=== PATIENT | female | born 1955 | race African-American/Black ===

== ENCOUNTER 2017-12-06 10:18 | Inpatient (IN) | payer OTHER ==
[~2017-12-06] VITALS: Ht 170.2 cm; Wt 89.8 kg
[2017-12-06 11:18] LABS: Urine Bacteria FEW /hpf (None Seen); Urine Blood Negative /uL (Negative); Urine Specific Gravity 1.042 (1.001-1.035); Urine WBC 2 /hpf (0 - 5)
[2017-12-06 11:19] LABS: Hemoglobin 17.9 g/dL (12.2-16.2)
[2017-12-06 11:21] LABS: Hematocrit 52.7 % (36.0-46.0); Mean Corpuscular Hemoglobin 32.8 pg (28.0-32.0); Mean Corpuscular Volume 96.3 fL (80.0-100.0); Platelet Count (auto) 204 10^3/uL (140-450); Red Blood Cells 5.47 10^6/uL (4.0-5.20); Red Cell Distribution Width 15.6 % (11.8-14.3)
[2017-12-06 11:35] LABS: Basophils % (manual) 0 (0.0-2.0); Blast Cells 0; Eosinophils % (manual) 0 (0-7); Metamyelocytes % 0; Monocytes % (manual) 0 (0-12); Myelocytes % 0; Promyelocytes % 0; Reactive Lymphocytes 0; White Blood Cell 34.2 10^3/uL (4.4-10.8)
[2017-12-06 11:38] LABS: Albumin 3.9 g/dL (3.4-5.0); BUN/Creatinine Ratio 11.8; Bilirubin, Total 1.3 mg/dL (0.2-1.0); Calcium 8.7 mg/dL (8.5-10.1); Potassium 3.1 mmol/L (3.5-5.1); Total Protein 8.2 g/dL (6.4-8.2)
[2017-12-06] MEDS ORDERED: MORPHINE SULFATE 8mg/ml INJ SDV IV ONE (12:00)
[2017-12-06] MEDS ORDERED: SODIUM CHLORIDE 0.9% 1,000 ML IV ONE (12:00)
[2017-12-06] MEDS ORDERED: ONDANSETRON HCL 4 MG/2 ML VIAL IV ONE (12:00)
[2017-12-06] MEDS ORDERED: cefTRIAXone 1GM/10ml IVPUSH 10 ML IV ONE (13:15)
[2017-12-06 13:22] LABS: Amylase 321 U/L (25-115)
[2017-12-06 13:32] LABS: Lipase 5942 U/L (73-393)
[2017-12-06 14:11] LABS: Band Neutrophils % (manual) 17; Lymphocytes % (manual) 3 (10.0-50.0)
[2017-12-06] MEDS ORDERED: LEVOFLOXACIN 500MG 100 ML IV ONE (14:15)
[2017-12-06] MEDS ORDERED: NITROGLYCERIN 0.4 MG SL TAB SL PRN (14:15)
[2017-12-06] MEDS ORDERED: LORazepam 2MG/ML-1ML VIAL IV PRN (14:15)
[2017-12-06] MEDS ORDERED: PANTOPRAZOLE 40 MG/10 ML VIAL IV ONE (14:15)
[2017-12-06] MEDS ORDERED: MORPHINE SULFATE 8mg/ml INJ SDV IV PRN ×2 (14:15)
[2017-12-06] MEDS ORDERED: DEXTROSE (50%) 50ML SYRG IV PRN (14:15)
[2017-12-06] MEDS: SODIUM CHLORIDE 0.9% 1,000 ML IV SCH ×2 (14:30→21:56)
[2017-12-06] MEDS ORDERED: PHYTONADIONE (VIT K)10 MG/ML 1ML VIAL SUBCUT ONE (14:30)
[2017-12-06] MEDS: PROMETHAZINE HCL 25 MG/ML 1ML IV PRN ×2 (15:33→20:20)
[2017-12-06] MEDS: POTASSIUM CHL 20MEQ/100ML 100 ML IV SCH ×3 (15:34→20:20)
[2017-12-06] MEDS: MORPHINE SULFATE 8mg/ml INJ SDV IV PRN ×2 (15:34→20:20)
[2017-12-06] MEDS: ACCU-CHEK COMFORT CURVE STRIP VI SCH (18:26)
[2017-12-06] MEDS: metroNIDAZOLE 500MG/100ML 100 ML IV SCH (18:30)
[2017-12-07] MEDS: ACCU-CHEK COMFORT CURVE STRIP VI SCH ×4 (00:11→18:02)
[2017-12-07] MEDS ORDERED: SODIUM CHLORIDE 0.9% 1,000 ML IV ONE (01:00)
[2017-12-07] MEDS: metroNIDAZOLE 500MG/100ML 100 ML IV SCH ×3 (01:06→18:02)
[2017-12-07] MEDS: MORPHINE SULFATE 8mg/ml INJ SDV IV PRN ×4 (01:44→20:23)
[2017-12-07] MEDS: PROMETHAZINE HCL 25 MG/ML 1ML IV PRN (01:44)
[2017-12-07] MEDS ORDERED: SODIUM CHLORIDE 0.9% 500 ML IV ONE ×2 (02:15→03:15)
[2017-12-07] MEDS: SODIUM CHLORIDE 0.9% 1,000 ML IV SCH ×3 (03:49→16:50)
[2017-12-07 05:36] LABS: Basophils # (auto) 0 uL; Basophils % (auto) 0.1 % (0.0-2.0); Eosinophils # (auto) 0 uL; Hematocrit 45.3 % (36.0-46.0); Lymphocytes # (auto) 0.8 uL; Lymphocytes % (auto) 3.4 % (10.0-50.0); Mean Corpuscular Hemoglobin 32.9 pg (28.0-32.0); Mean Corpuscular Hgb Conc. 33.2 g/dL (32.0-36.0); Mean Corpuscular Volume 99.3 fL (80.0-100.0); Monocytes # (auto) 0.7 uL; Monocytes % (auto) 2.9 % (0.0-12.0); Neutrophils # (auto) 22.5 uL; Neutrophils % (auto) 93.6 % (37.0-80.0); Platelet Count (auto) 134 10^3/uL (140-450); Red Blood Cells 4.56 10^6/uL (4.0-5.20)
[2017-12-07 05:39] LABS: INR 1.26 (0.9-1.15); Partial Thromboplastin Time 36.9 sec (22.64-33.71); Prothrombin Time 13.8 sec (9.37-12.3)
[2017-12-07 05:48] LABS: Albumin 2.5 g/dL (3.4-5.0); BUN/Creatinine Ratio 23.5; Bilirubin, Total 0.7 mg/dL (0.2-1.0); Calcium 6.9 mg/dL (8.5-10.1); Potassium 4.4 mmol/L (3.5-5.1); Total Protein 6.1 g/dL (6.4-8.2)
[2017-12-07] MEDS ORDERED: LEVOFLOXACIN 250MG 50 ML IV SCH (10:00)
[2017-12-07] MEDS ORDERED: PANTOPRAZOLE 40 MG/10 ML VIAL IV SCH (10:00)
[2017-12-07] MEDS ORDERED: LEVOFLOXACIN 500MG 100 ML IV ONE (15:15)
[2017-12-07 19:28] VITALS: BP 146/82
[2017-12-08] MEDS ORDERED: LEVOFLOXACIN 750MG 150 ML IV SCH (10:00)
== END 2017-12-07 20:23 | disposition short-term general hospital (02) | DRG 871 ==
LOC: ER 10:18 → EDBD 10:18 → TELE 10:19
PROVIDERS: ADMIT Internal Medicine; ATTEND Internal Medicine
DX: A41.9 Sepsis, unspecified organism (principal); K85.90 Acute pancreatitis without necrosis or infection, unspecified; N17.0 Acute kidney failure with tubular necrosis; E87.1 Hypo-osmolality and hyponatremia; E66.9 Obesity, unspecified; I10 Essential (primary) hypertension; Z82.49 Family history of ischemic heart disease and other diseases of the circulatory system; Z98.84 Bariatric surgery status; Z90.710 Acquired absence of both cervix and uterus; Z88.0 Allergy status to penicillin; Z68.31 Body mass index [BMI] 31.0-31.9, adult
CPT/HCPCS: 36415; 71045; 74176; 80053; 80061; 81001; 82150; 82962; 83036; 83605; 83690; 83880; 85007; 85025; 85027; 85610; 85730; 87040; 87086; 93005; 96361; 96365; 96367; 96375; 99291; C9113; J1956; J2270; J2405; J3480; J3490